=== PATIENT | female | born 1955 | race American Indian/Alaskan Native ===

== ENCOUNTER 2020-10-12 00:55 | Inpatient (IN) | payer MEDICARE ==
[2020-10-12] MEDS ORDERED: ASPIRIN 325 MG TAB PO ONE (01:11)
[2020-10-12 01:33] LABS: Basophils # (Auto) 0.1 K/mm3 (0.0-0.1); Eosinophils # (Auto) 0.2 K/mm3 (0.0-0.4); Hematocrit 34.4 % (30.3-42.9); Hemoglobin 11.9 gm/dl (10.1-14.3); Lymphocytes # (Auto) 1.3 K/mm3 (1.2-5.4); Lymphocytes % (Auto) 14.7 % (13.4-35.0); Mean Corpuscular HGB Conc 34 % (30-34); Mean Corpuscular Volume 95 fl (79-97); Monocytes # (Auto) 0.7 K/mm3 (0.0-0.8); Monocytes % (Auto) 8.3 % (0.0-7.3); Platelet Count 311 K/mm3 (140-440); Red Blood Count 3.62 M/mm3 (3.65-5.03); Red Cell Distribution Width 13.4 % (13.2-15.2)
--- NOTE | 2020-10-12 01:53 | XRay Report ---
XR chest routine 2V INDICATION / CLINICAL INFORMATION: CP. COMPARISON: None available. FINDINGS: SUPPORT DEVICES: None. HEART /PULMONARY VASCULATURE: No significant abnormality. LUNGS / PLEURA: No significant pulmonary or pleural abnormality. No pneumothorax. ADDITIONAL FINDINGS: No significant additional findings. IMPRESSION: 1. No acute findings. Signer Name: Corbin Paz MD Signed: 10/12/2020 1:48 AM Workstation Name: [id number]
[2020-10-12 02:06] LABS: Alanine Aminotransferase 15 units/L (7-56); Albumin 4.1 g/dL (3.9-5); BUN/Creatinine Ratio 15; Blood Urea Nitrogen 22 mg/dL (7-17); Calcium 9.1 mg/dL (8.4-10.2); Hemolysis Index 3
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
[2020-10-12] MEDS ORDERED: NITROGLYCERIN 0.4 MG TAB SUBL SL PRN (09:07)
[2020-10-12] MEDS ORDERED: ACETAMINOPHEN 325 MG TAB PO ONE (09:07)
[2020-10-12] MEDS ORDERED: INSULIN REGULAR, HUMAN 100 UNITS/1 ML IV ONE (09:07)
[2020-10-12] MEDS ORDERED: LACTATED RINGERS 500 ML IV ONE (09:07)
[2020-10-12] MEDS ORDERED: FAMOTIDINE 20 MG/2 ML INJ IV ONE (09:07)
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
--- NOTE | 2020-10-12 09:52 | Electrocardiograph Report ---
[facility] Test Date: 2020-10-12 Test Time: 01:08:58 Pat Name: ORA MCINTOSH Department: Room: [facility] Gender: F Wire Harness Assembler: NITHYA : 1955 Requested By: JANET LYONS Order Number: [id number] Reading MD: Israel Redmond Measurements Intervals [place] Rate: 103 P: 64 VT: 174 QRS: -10 QRSD: 157 T: 113 QT: 400 QTc: 523 Interpretive Statements Sinus tachycardia Left bundle branch block ST elevation secondary to IVCD No previous ECG available for comparison Electronically Signed On 10-12-2020 9:51:52 EDT by Israel Redmond
[2020-10-12] MEDS ORDERED: ENOXAPARIN 30 MG/0.3 ML INJ SUB-Q SCH (10:00)
[2020-10-12] MEDS ORDERED: NON-FORMULARY EACH (Losartan Potassium [Losartan Potassium] 100 MG Tablet) PO SCH (10:00)
[2020-10-12] MEDS ORDERED: INSULIN LISPRO 100 UNIT/ML SUB-Q ONE (10:00)
[2020-10-12 10:19] LABS: INR 0.95 (0.87-1.13)
[2020-10-12] MEDS: ENOXAPARIN 40 MG/0.4 ML INJ SUB-Q SCH (10:20)
--- NOTE | 2020-10-12 11:17 | Nuclear Medicine Report ---
NUCLEAR MEDICINE PERFUSION LUNG SCAN INDICATION / CLINICAL INFORMATION: cp dyspnea + d dimer. TECHNIQUE: 4.5 mCi of Tc-99m MAA were given by IV. COMPARISON: Chest radiograph dated 10/12/2020. FINDINGS: PERFUSION: No significant perfusion defects. ADDITIONAL FINDINGS: None. IMPRESSION: 1. Low probability for pulmonary embolism. Signer Name: Cristofer Acharya MD Signed: 10/12/2020 11:12 AM Workstation Name: [id number]
[2020-10-12] MEDS ORDERED: INSULIN GLARGINE 100 UNITS/ML SUB-Q ONE (11:50)
[2020-10-12] MEDS: LOSARTAN 50 MG TAB PO SCH (11:56)
[2020-10-12] MEDS: glipiZIDE 10 MG TAB PO SCH (11:56)
[2020-10-12] MEDS: NORTRIPTYLINE 25 MG CAP PO SCH ×3 (11:57→21:41)
[2020-10-12] MEDS: FUROSEMIDE 20 MG TAB PO SCH (11:57)
[2020-10-12] MEDS: GABAPENTIN 300 MG CAP PO SCH ×2 (14:43→21:40)
[2020-10-12] MEDS: INSULIN LISPRO 100 UNIT/ML SUB-Q SCH ×2 (16:52→21:42)
--- NOTE | 2020-10-12 19:30 | Progress Note ---
Assessment and Plan Assessment and plan: --Chest pain; Scheduled for stress test today however patient had VQ scan To rule out PE, and stress test is rescheduled for tomorrow 10/14/2020 Serial cardiac enzymes negative, EKG left bundle branch block/ST elevation secondary to IVCD No old EKG to compare Echocardiogram EF 15 to 20% Consult cardiology for further evaluation. --Cardiomyopathy EF 15 to 20% IV diuretics, beta-blockers, input output monitoring Low-sodium diet, fluid restriction Ischemia work-up, cardiology consultation --Hyperglycemia/hyperosmolar Closely monitor blood sugars Accu-Chek sliding scale coverage ADA diet Resume home long-acting insulin, Check A1c Diabetic education, diabetic diet education prior to discharge --Hyponatremia/probably pseudohyponatremia; Due to hyperglycemia, as the sugars improve Sodium levels will improve, normal saline --Type 2 diabetes mellitus; uncontrolled Accu-Chek sliding scale coverage ADA diet long-acting insulin Oral hypoglycemics, check A1c, diabetic education --Diabetic neuropathy; Resume gabapentin and supportive care --Acute kidney injury; Vasomotor nephropathy, gentle hydration Monitor renal function, avoid nephrotoxin --Obesity; BMI 30.8 Patient needs weight reduction when medically stable --DVT prophylaxis; Lovenox subcu --Full CODE STATUS Closely monitor the patient and adjust management as needed Follow cardiology evaluation recommendations Plan of care reviewed with the patient and her nurse History Interval history: I seen and examined the patient at bedside today Patient's chart and medications reviewed Admitted with chest pain with risk factors Initially scheduled for stress test, unable to do due to recent VQ scan Patient continues to have intermittent chest pain Vital signs Hospitalist Physical - Constitutional Vitals: Temp Pulse Resp BP Pulse Ox 98.3 F 95 H 16 148/73 99 10/12/20 16:00 10/12/20 16:00 10/12/20 16:31 10/12/20 16:00 10/12/20 16:31 General appearance: Present: no acute distress, well-nourished, obese - EENT Eyes: Present: PERRL, EOM intact - Neck Neck: Present: supple, normal ROM - Respiratory Respiratory effort: normal Respiratory: bilateral: diminished, rales, negative: rhonchi, wheezing - Cardiovascular Rhythm: regular Heart Sounds: Present: S1 & S2 - Extremities Extremities: no ischemia, No edema - Abdominal General gastrointestinal: soft, non-tender, non-distended, normal bowel sounds - Integumentary Integumentary: Present: clear, warm - Psychiatric Psychiatric: appropriate mood/affect, cooperative - Neurologic Neurologic: moves all extremities HEART Score - HEART Score EKG: Non-specific Age: > 65 Risk factors: > 3 risk factors or hx of atherosclerotic disease Troponin: Troponin T < 0.010 ng/mL (0.00-0.029) 10/12/20 07:25 Troponin: < normal limit - Critical Actions Critical Actions: 4-6 pts:12-16.6% risk of adverse cardiac event. Should be admitted Results - Labs CBC & Chem 7: 10/14/20 05:12 10/14/20 05:12 Labs: Laboratory Last Values WBC 8.7 K/mm3 (4.5-11.0) 10/12/20 01:18 RBC 3.62 M/mm3 (3.65-5.03) L 10/12/20 01:18 Hgb 11.9 gm/dl (10.1-14.3) 10/12/20 01:18 Hct 34.4 % (30.3-42.9) 10/12/20 01:18 MCV 95 fl (79-97) 10/12/20 01:18 MCH 33 pg (28-32) H 10/12/20 01:18 MCHC 34 % (30-34) 10/12/20 01:18 RDW 13.4 % (13.2-15.2) 10/12/20 01:18 Plt Count 311 K/mm3 (140-440) 10/12/20 01:18 Lymph % (Auto) 14.7 % (13.4-35.0) 10/12/20 01:18 [place] % (Auto) 8.3 % (0.0-7.3) H 10/12/20 01:18 Eos % (Auto) 2.0 % (0.0-4.3) 10/12/20 01:18 Baso % (Auto) 1.0 % (0.0-1.8) 10/12/20 01:18 Lymph # (Auto) 1.3 K/mm3 (1.2-5.4) 10/12/20 01:18 [place] # (Auto) 0.7 K/mm3 (0.0-0.8) 10/12/20 01:18 Eos # (Auto) 0.2 K/mm3 (0.0-0.4) 10/12/20 01:18 Baso # (Auto) 0.1 K/mm3 (0.0-0.1) 10/12/20 01:18 Seg Neutrophils % 74.0 % (40.0-70.0) H 10/12/20 01:18 Seg Neutrophils # 6.4 K/mm3 (1.8-7.7) 10/12/20 01:18 PT 13.2 Sec. (12.2-14.9) 10/12/20 09:07 INR 0.95 (0.87-1.13) 10/12/20 09:07 D-Dimer 253.29 ng/mlDDU (0-234) H 10/12/20 09:07 Sodium 129 mmol/L (137-145) L 10/12/20 01:18 Potassium 4.9 mmol/L (3.6-5.0) 10/12/20 01:18 Chloride 90.7 mmol/L (98-107) L 10/12/20 01:18 Carbon Dioxide 26 mmol/L (22-30) 10/12/20 01:18 Anion Gap 17 mmol/L 10/12/20 01:18 BUN 22 mg/dL (7-17) H 10/12/20 01:18 Creatinine 1.5 mg/dL (0.6-1.2) H 10/12/20 01:18 Estimated GFR 35 ml/min 10/12/20 01:18 BUN/Creatinine Ratio 15 % 10/12/20 01:18 Glucose 592 mg/dL (65-100) H* 10/12/20 01:18 POC Glucose 169 mg/dL (70-105) H 10/12/20 16:03 Calcium 9.1 mg/dL (8.4-10.2) 10/12/20 01:18 Magnesium 2.20 mg/dL (1.7-2.3) 10/12/20 09:07 Total Bilirubin 0.40 mg/dL (0.1-1.2) 10/12/20 01:18 AST 19 units/L (5-40) 10/12/20 01:18 ALT 15 units/L (7-56) 10/12/20 01:18 Alkaline Phosphatase 158 units/L (35-129) H 10/12/20 01:18 Total Creatine Kinase 58 units/L (30-135) 10/12/20 09:07 Troponin T < 0.010 ng/mL (0.00-0.029) 10/12/20 07:25 Total Protein 7.1 g/dL (6.3-8.2) 10/12/20 01:18 Albumin 4.1 g/dL (3.9-5) 10/12/20 01:18 Albumin/Globulin Ratio 1.4 % 10/12/20 01:18 Teran/IV: Voiding Method Toilet Active Medications - Current Medications Current Medications: Generic Name Dose Route Start Last Admin Trade Name Freq PRN Reason Stop Dose Admin Enoxaparin Sodium 40 mg 10/12/20 10:00 10/12/20 10:20 Enoxaparin 40 Mg/0.4 Ml Inj SUB-Q 40 mg QDAY@1000 JOSE ANGEL Administration Furosemide 20 mg 10/12/20 10:00 10/12/20 11:57 Furosemide 20 Mg Tab PO 20 mg QDAY JOSE ANGEL Administration Gabapentin 300 mg 10/12/20 14:00 10/12/20 14:43 Gabapentin 300 Mg Cap PO 300 mg Q8HR JOSE ANGEL Administration Glipizide 10 mg 10/12/20 10:00 10/12/20 11:56 Glipizide 10 Mg Tab PO 10 mg QDDIAB JOSE ANGEL Administration Insulin Glargine 10 units 10/12/20 22:00 Insulin Glargine 100 Units/Ml SUB-Q QHS JOSE ANGEL Insulin Human Lispro 0 unit 10/12/20 16:30 10/12/20 16:52 Insulin Lispro 100 Unit/Ml SUB-Q 2 unit ACHS JOSE ANGEL Administration Protocol Losartan Potassium 100 mg 10/12/20 10:00 10/12/20 11:56 Losartan 50 Mg Tab PO 100 mg QDAY JOSE ANGEL Administration Nitroglycerin 0.4 mg 10/12/20 09:07 Nitroglycerin 0.4 Mg Tab Subl SL .Q5MIN PRN Chest Pain Nortriptyline HCl 25 mg 10/12/20 14:00 10/12/20 14:38 Nortriptyline 25 Mg Cap PO Not Given TID JOSE ANGEL
[2020-10-12] MEDS: INSULIN GLARGINE 100 UNITS/ML SUB-Q SCH (21:48)
[2020-10-12] MEDS: PANTOPRAZOLE 40 MG INJ IV SCH (22:17)
[2020-10-13 05:14] LABS: Calcium 9.5 mg/dL (8.4-10.2)
[2020-10-13] MEDS: GABAPENTIN 300 MG CAP PO SCH ×3 (06:02→23:03)
[2020-10-13] MEDS: NORTRIPTYLINE 25 MG CAP PO SCH ×3 (09:10→23:03)
[2020-10-13] MEDS: INSULIN LISPRO 100 UNIT/ML SUB-Q SCH ×4 (09:10→23:01)
[2020-10-13] MEDS: LOSARTAN 50 MG TAB PO SCH (09:11)
[2020-10-13] MEDS: glipiZIDE 10 MG TAB PO SCH (09:11)
[2020-10-13] MEDS: ENOXAPARIN 40 MG/0.4 ML INJ SUB-Q SCH (09:12)
[2020-10-13] MEDS: PANTOPRAZOLE 40 MG INJ IV SCH (09:12)
[2020-10-13] MEDS: FUROSEMIDE 20 MG TAB PO SCH (09:12)
[2020-10-13] MEDS: carvediloL 6.25 MG TAB PO SCH ×2 (10:07→23:03)
--- NOTE | 2020-10-13 10:54 | Electrocardiograph Report ---
[facility] Test Date: 2020-10-13 Test Time: 07:15:44 Pat Name: ORA MCINTOSH Department: Room: A457 1 Gender: F Sustainability Project Manager: CATIE : 1955 Requested By: JANET LYONS Order Number: [id number] Reading MD: Israel Redmond Measurements Intervals [place] Rate: 91 P: 80 [place]: 166 QRS: -21 QRSD: 162 T: 109 QT: 430 QTc: 528 Interpretive Statements Sinus rhythm Left bundle branch block ST elevation secondary to IVCD Compared to ECG 10/12/2020 01:08:58 Sinus tachycardia no longer present Electronically Signed On 10-13-2020 10:54:05 EDT by Israel Redmond
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
[2020-10-13] MEDS ORDERED: ASPIRIN EC 325 MG TAB PO SCH (14:00)
[2020-10-13] MEDS ORDERED: SODIUM CHLORIDE 0.9% 500 ML 500 ML IV SCH (14:00)
[2020-10-13] MEDS: SPIRONOLACTONE 25 MG TAB PO SCH (15:07)
[2020-10-13] MEDS: ASPIRIN EC 81 MG TAB PO SCH (15:08)
[2020-10-13] MEDS: INSULIN GLARGINE 100 UNITS/ML SUB-Q SCH (23:02)
[2020-10-14] MEDS: GABAPENTIN 300 MG CAP PO SCH ×3 (05:25→21:54)
[2020-10-14 05:48] LABS: Hematocrit 35.1 % (30.3-42.9); Hemoglobin 11.6 gm/dl (10.1-14.3); Mean Corpuscular HGB Conc 33 % (30-34); Mean Corpuscular Volume 96 fl (79-97); Platelet Count 298 K/mm3 (140-440); Red Blood Count 3.66 M/mm3 (3.65-5.03); Red Cell Distribution Width 13.9 % (13.2-15.2)
[2020-10-14 05:58] LABS: INR 0.85 (0.87-1.13)
[2020-10-14 06:07] LABS: Calcium 9.1 mg/dL (8.4-10.2)
[2020-10-14] MEDS: INSULIN LISPRO 100 UNIT/ML SUB-Q SCH ×4 (08:53→21:53)
[2020-10-14] MEDS: glipiZIDE 10 MG TAB PO SCH (09:06)
[2020-10-14] MEDS: NORTRIPTYLINE 25 MG CAP PO SCH ×3 (09:07→21:54)
--- NOTE | 2020-10-14 10:24 | Electrocardiograph Report ---
[facility] Test Date: 2020-10-14 Test Time: 07:22:01 Pat Name: ORA MCINTOSH Department: Room: A457 1 Gender: F Sales Rep: CATIE : 1955 Requested By: LEON DOWNS Order Number: [id number] Reading MD: Israel Redmond Measurements Intervals [place] Rate: 87 P: 68 [place]: 185 QRS: -14 QRSD: 160 T: 91 QT: 427 QTc: 515 Interpretive Statements Sinus rhythm Left bundle branch block ST elevation secondary to IVCD Compared to ECG 10/13/2020 07:15:44 No significant changes Electronically Signed On 10-14-2020 10:24:23 EDT by Israel Redmond
[2020-10-14] MEDS: ASPIRIN EC 81 MG TAB PO SCH (12:13)
--- NOTE | 2020-10-14 12:15 | Progress Note ---
Assessment and Plan Assessment and plan: Cardiac catheterization: as done via the right radial approach, no complications. We found a predominant ly nonischemic cardiomyopathy with ejection fraction 25 to 30%. There was single-vessel disease consisting of a long, 80% stenosis of the proximal LAD, which we treated with angioplasty and stenting, successful implantation of a 3.0 mm drug-eluting stent with excellent angiographic result. Patient will be placed on dual oral antiplatelet therapy with aspirin and Plavix, in addition to optimal, guideline directed therapy for the underlying nonischemic cardiomyopathy. --Chest pain/new onset cardiomyopathy/EF 15 to 20% Cardiology evaluated the patient, underwent left heart catheterization via right radial approach Single-vessel disease with 80% stenosis of proximal LAD status post angioplasty and BOBBI placement Patient is started on dual antiplatelet therapy with aspirin and Plavix Cardiology recommend guideline directed therapy for underlying nonischemic cardiomyopathy, --Coronary artery disease; 80% stenosis proximal LAD s/p BOBBI placement, started on dual antiplatelet therapy --Severe cardiomyopathy; EF 15 to 20% Continue IV diuretics beta-blockers, input output monitoring JIM inhibitor's, fluid restriction, low-sodium diet --Hyperglycemia/hyperosmolar; and on admission Significantly improved --Type 2 diabetes mellitus; blood sugars uncontrolled patient did not receive insulin last night due to n.p.o. status Accu-Chek sliding scale coverage ADA diet long-acting insulin Oral hypoglycemics, check A1c, diabetic education --Hyponatremia/probably pseudohyponatremia; Resolved, closely monitor electrolytes --Diabetic neuropathy; Resume gabapentin and supportive care --Acute kidney injury; Vasomotor nephropathy, gentle hydration Monitor renal function, avoid nephrotoxin --Obesity; BMI 30.8 Patient needs weight reduction when medically stable --DVT prophylaxis; Lovenox subcu --Full CODE STATUS Closely monitor the patient and adjust management as needed Follow cardiology evaluation recommendations Plan of care reviewed with the patient and her nurse Possible discharge in 1 to 2 days if stable and cleared by cardiology History Interval history: Patient was evaluated by cardiology and was scheduled for left heart cathet erization this morning. Patient underwent LHC, status post stent placement I seen and examined the patient at the bedside Patient's chart and medications reviewed No new complaints vital signs noted Hospitalist Physical - Constitutional Vitals: Temp Pulse Resp BP Pulse Ox 97.9 F 88 19 106/63 100 10/14/20 08:07 10/14/20 08:07 10/14/20 08:07 10/14/20 08:07 10/14/20 08:07 General appearance: Present: no acute distress, well-nourished - EENT Eyes: Present: PERRL, EOM intact - Neck Neck: Present: supple, normal ROM - Respiratory Respiratory effort: normal Respiratory: bilateral: diminished, negative: rales, rhonchi, wheezing - Cardiovascular Rhythm: regular Heart Sounds: Present: S1 & S2 - Extremities Extremities: no ischemia, No edema - Abdominal General gastrointestinal: soft, non-tender, non-distended, normal bowel sounds - Integumentary Integumentary: Present: clear, warm - Psychiatric Psychiatric: appropriate mood/affect, cooperative - Neurologic Neurologic: moves all extremities HEART Score - HEART Score EKG: Non-specific Age: > 65 Risk factors: > 3 risk factors or hx of atherosclerotic disease Troponin: Troponin T < 0.010 ng/mL (0.00-0.029) 10/12/20 07:25 Troponin: < normal limit - Critical Actions Critical Actions: 4-6 pts:12-16.6% risk of adverse cardiac event. Should be admitted Results - Labs CBC & Chem 7: 10/14/20 05:12 10/14/20 05:12 Labs: Laboratory Last Values WBC 7.0 K/mm3 (4.5-11.0) 10/14/20 05:12 RBC 3.66 M/mm3 (3.65-5.03) 10/14/20 05:12 Hgb 11.6 gm/dl (10.1-14.3) 10/14/20 05:12 Hct 35.1 % (30.3-42.9) 10/14/20 05:12 MCV 96 fl (79-97) 10/14/20 05:12 MCH 32 pg (28-32) 10/14/20 05:12 MCHC 33 % (30-34) 10/14/20 05:12 RDW 13.9 % (13.2-15.2) 10/14/20 05:12 Plt Count 298 K/mm3 (140-440) 10/14/20 05:12 Lymph % (Auto) 14.7 % (13.4-35.0) 10/12/20 01:18 [place] % (Auto) 8.3 % (0.0-7.3) H 10/12/20 01:18 Eos % (Auto) 2.0 % (0.0-4.3) 10/12/20 01:18 Baso % (Auto) 1.0 % (0.0-1.8) 10/12/20 01:18 Lymph # (Auto) 1.3 K/mm3 (1.2-5.4) 10/12/20 01:18 [place] # (Auto) 0.7 K/mm3 (0.0-0.8) 10/12/20 01:18 Eos # (Auto) 0.2 K/mm3 (0.0-0.4) 10/12/20 01:18 Baso # (Auto) 0.1 K/mm3 (0.0-0.1) 10/12/20 01:18 Seg Neutrophils % 74.0 % (40.0-70.0) H 10/12/20 01:18 Seg Neutrophils # 6.4 K/mm3 (1.8-7.7) 10/12/20 01:18 PT 12.1 Sec. (12.2-14.9) L 10/14/20 05:12 INR 0.85 (0.87-1.13) L 10/14/20 05:12 D-Dimer 253.29 ng/mlDDU (0-234) H 10/12/20 09:07 Sodium 135 mmol/L (137-145) L 10/14/20 05:12 Potassium 5.1 mmol/L (3.6-5.0) H 10/14/20 05:12 Chloride 97.4 mmol/L (98-107) L 10/14/20 05:12 Carbon Dioxide 29 mmol/L (22-30) 10/14/20 05:12 Anion Gap 14 mmol/L 10/14/20 05:12 BUN 24 mg/dL (7-17) H 10/14/20 05:12 Creatinine 1.3 mg/dL (0.6-1.2) H 10/14/20 05:12 Estimated GFR 49 ml/min 10/14/20 05:12 BUN/Creatinine Ratio 18 % 10/14/20 05:12 Glucose 354 mg/dL (65-100) H 10/14/20 05:12 POC Glucose 289 mg/dL (70-105) H 10/14/20 11:53 Calcium 9.1 mg/dL (8.4-10.2) 10/14/20 05:12 Phosphorus 3.00 mg/dL (2.5-4.5) 10/13/20 04:06 Magnesium 2.10 mg/dL (1.7-2.3) 10/13/20 04:06 Total Bilirubin 0.40 mg/dL (0.1-1.2) 10/12/20 01:18 AST 19 units/L (5-40) 10/12/20 01:18 ALT 15 units/L (7-56) 10/12/20 01:18 Alkaline Phosphatase 158 units/L (35-129) H 10/12/20 01:18 Total Creatine Kinase 58 units/L (30-135) 10/12/20 09:07 Troponin T < 0.010 ng/mL (0.00-0.029) 10/12/20 07:25 Total Protein 7.1 g/dL (6.3-8.2) 10/12/20 01:18 Albumin 4.1 g/dL (3.9-5) 10/12/20 01:18 Albumin/Globulin Ratio 1.4 % 10/12/20 01:18 Teran/IV: Voiding Method Toilet Active Medications - Current Medications Current Medications: Generic Name Dose Route Start Last Admin Trade Name Freq PRN Reason Stop Dose Admin Aspirin 81 mg 10/13/20 14:00 10/13/20 15:08 Aspirin Ec 81 Mg Tab PO 81 mg QDAY JOSE ANGEL Administration Carvedilol 6.25 mg 10/13/20 10:00 10/13/20 23:03 Carvedilol 6.25 Mg Tab PO 6.25 mg BID JOSE ANGEL Administration Enoxaparin Sodium 40 mg 10/12/20 10:00 10/13/20 09:12 Enoxaparin 40 Mg/0.4 Ml Inj SUB-Q 40 mg QDAY@1000 JOSE ANGEL Administration Furosemide 40 mg 10/14/20 10:00 Furosemide 40 Mg/4 Ml Inj IV QDAY JOSE ANGEL Gabapentin 300 mg 10/12/20 14:00 10/14/20 05:25 Gabapentin 300 Mg Cap PO 300 mg Q8HR JOSE ANGEL Administration Glipizide 10 mg 10/12/20 10:00 10/14/20 09:06 Glipizide 10 Mg Tab PO Not Given QDDIAB JOSE ANGEL Sodium Chloride 500 mls @ 50 mls/hr 10/13/20 14:00 10/14/20 05:25 Nacl 0.9% 500 Ml IV 10/14/20 13:59 50 mls/hr DIRECT JOSE ANGEL Administration Insulin Glargine 10 units 10/12/20 22:00 10/13/20 23:02 Insulin Glargine 100 Units/Ml SUB-Q Not Given QHS JOSE ANGEL Insulin Human Lispro 0 unit 10/12/20 16:30 10/14/20 12:01 Insulin Lispro 100 Unit/Ml SUB-Q 4 unit ACHS JOSE ANGEL Administration Protocol Losartan Potassium 100 mg 10/12/20 10:00 10/13/20 09:11 Losartan 50 Mg Tab PO 100 mg QDAY JOSE ANGEL Administration Nitroglycerin 0.4 mg 10/12/20 09:07 Nitroglycerin 0.4 Mg Tab Subl SL .Q5MIN PRN Chest Pain Nortriptyline HCl 25 mg 10/12/20 14:00 10/14/20 09:07 Nortriptyline 25 Mg Cap PO Not Given TID JOSE ANGEL Pantoprazole Sodium 40 mg 10/12/20 22:00 10/13/20 09:12 Pantoprazole 40 Mg Inj IV 40 mg QDAY JOSE ANGEL Administration Spironolactone 25 mg 10/13/20 14:00 10/13/20 15:07 Spironolactone 25 Mg Tab PO Not Given QDAY JOSE ANGEL
[2020-10-14] MEDS ORDERED: HEPARIN/NS 5000 UNIT/500ML 1,000 ML IR ONE (12:22)
[2020-10-14] MEDS: MIDAZOLAM 2 MG/2 ML INJ ONE ×2 (13:24→13:44)
[2020-10-14] MEDS: fentaNYL 100 MCG/2 ML INJ ONE ×2 (13:24→13:44)
[2020-10-14] MEDS: LIDOCAINE (2%) 20 MG/1 ML VIAL 20 ML MDV INFILTRATI ONE ×2 (13:25→13:46)
[2020-10-14] MEDS: VERAPAMIL 5 MG/2 ML INJ ONE ×2 (13:25→13:47)
[2020-10-14] MEDS: HEPARIN 10,000 UNITS/10 ML VIAL ONE ×3 (13:25→13:57)
[2020-10-14] MEDS: NITROGLYCERIN SYRINGE 3 ML ONE ×2 (13:26→13:47)
[2020-10-14] MEDS ORDERED: CLOPIDOGREL 300 MG TAB ONE (14:20)
[2020-10-14] MEDS ORDERED: ALUM-MAG HYDROXIDE-SIMETHICONE 200-200-20MG/5ML ORAL LIQD 30 ML ONE (14:20)
--- NOTE | 2020-10-14 14:32 | Event Note ---
Date: 10/14/20 Cardiac catheterization was done via the right radial approach, no complications. We found a predominantly nonischemic cardiomyopathy with ejection fraction 25 to 30%. There was single-vessel disease consisting of a long, 80% stenosis of the proximal LAD, which we treated with angioplasty and stenting, successful implantation of a 3.0 mm drug-eluting stent with excellent angiographic result. Patient will be placed on dual oral antiplatelet therapy with aspirin and Plavix, in addition to optimal, guideline directed therapy for the underlying nonischemic cardiomyopathy.
[2020-10-14] MEDS ORDERED: SODIUM CHLORIDE 0.9% 1000 ML 1,000 ML IV SCH (15:45)
[2020-10-14] MEDS: ENOXAPARIN 40 MG/0.4 ML INJ SUB-Q SCH (15:52)
[2020-10-14] MEDS: PANTOPRAZOLE 40 MG INJ IV SCH (18:32)
[2020-10-14] MEDS: FUROSEMIDE 40 MG/4 ML INJ IV SCH (18:33)
[2020-10-14] MEDS: LOSARTAN 50 MG TAB PO SCH (18:33)
[2020-10-14] MEDS: carvediloL 6.25 MG TAB PO SCH ×2 (18:33→21:54)
[2020-10-14] MEDS: SPIRONOLACTONE 25 MG TAB PO SCH (18:34)
--- NOTE | 2020-10-14 19:57 | Cardiac Catherization Report ---
DATE OF SERVICE: 10/14/2020 REASON FOR PROCEDURE: The patient is a 65-year-old woman who presented with chest pain and severe dilated cardiomyopathy with systolic left ventricular failure. After treatment of heart failure, she was recommended for cardiac catheterization. Risks and benefits of the procedure were discussed with the patient. On her presentation, there was mild prerenal azotemia, the patient was placed on intravenous hydration at 50-75 mL an hour of normal saline prior to the procedure. She was made aware of the increased risk of contrast nephropathy and consented to contrast angiography. PROCEDURES PERFORMED: 1. Left heart catheterization. 2. Selective left and right coronary angiography. 3. Left ventricular angiography. 4. Coronary angioplasty and stenting of the proximal LAD. 5. Sedation time start 1344, end 1413. The patient was prepped and draped in a sterile fashion after informed consent. The right radial cath site was prepped and draped after negative Randell's test. Right radial artery was entered using Seldinger technique followed by placement of a 6-[place] hydrophilic sheath. Routine radial cocktail was administered via the sheath. Selective left and right coronary angiography was then performed using a 3.5 left Debby and 4 right Debby. The right Debby was used for left ventricular angiography. The angiograms were reviewed. Left ventricular end diastolic pressure was 20, following coronary angiography. Ascending aortic pressure was 110/58. There was no significant pressure gradient on pullback across the aortic valve. Coronary angiography: The left main coronary artery was free of significant disease. The left anterior descending artery contained a long, up to 80% stenosis of its entire proximal segment. A large ramus intermedius artery contained mild luminal irregularities. The circumflex artery and its obtuse marginal branches contained mild irregularities. The right coronary artery was dominant and similarly contained diffuse mild irregularities. The left ventricle was moderately to severely dilated, there was severe left ventricular systolic dysfunction, ejection fraction 25%-30%. Coronary angioplasty: After review of the angiograms, coronary intervention to the proximal LAD stenosis was recommended. We selected a 3.0 XB guiding catheter and advanced to the left coronary ostium. A 0.014 inch Parking Enforcement Manager 50 guidewire was then introduced across the lesional segment. In the primary stenting maneuver, we deployed a 3.0 x 26 mm drug-eluting stent covering the entire long lesional segment of the proximal to mid LAD. Following stenting, we postdilated using a 3.0 mm NC balloon catheter. Following angioplasty, stenting and post-dilatation as described, there was an excellent angiographic result, zero residual stenosis and DAVE 3 flow maintained down the vessel. The procedure was well tolerated by the patient and there were no complications. The catheters and wires were removed, sheath removed and hemostasis achieved using TR Band. She was returned to the postprocedure unit in stable condition. There were no complications. CONCLUSION: 1. Coronary artery disease with a severe stenosis of the proximal to mid LAD. 2. Severe ischemic cardiomyopathy with ejection fraction 25%-35%. The severity of the cardiomyopathy is disproportionate to the degree of coronary artery disease present. 3. Successful ad-hoc angioplasty and stenting of the LAD, with an excellent angiographic result following deployment of a 3.0 mm drug-eluting stent. RECOMMENDATIONS: The patient will be placed on guideline directed medical therapy for coronary artery disease including dual oral antiplatelet therapy. Additional guideline directed medical therapy as indicated for underlying, predominantly nonischemic cardiomyopathy. TID: [id number] RECEIPT: [id number] BULMARO/ASA
[2020-10-14] MEDS: INSULIN GLARGINE 100 UNITS/ML SUB-Q SCH (21:54)
[2020-10-15] MEDS: GABAPENTIN 300 MG CAP PO SCH ×2 (06:00→13:02)
[2020-10-15 06:19] LABS: Basophils # (Auto) 0.1 K/mm3 (0.0-0.1); Basophils % (Auto) 1.1 % (0.0-1.8); Eosinophils # (Auto) 0.3 K/mm3 (0.0-0.4); Eosinophils % (Auto) 4.3 % (0.0-4.3); Hematocrit 30.2 % (30.3-42.9); Hemoglobin 10.3 gm/dl (10.1-14.3); Lymphocytes # (Auto) 1.3 K/mm3 (1.2-5.4); Lymphocytes % (Auto) 19.3 % (13.4-35.0); Mean Corpuscular HGB Conc 34 % (30-34); Mean Corpuscular Volume 96 fl (79-97); Monocytes # (Auto) 0.6 K/mm3 (0.0-0.8); Platelet Count 256 K/mm3 (140-440); Red Blood Count 3.15 M/mm3 (3.65-5.03); Red Cell Distribution Width 13.4 % (13.2-15.2)
[2020-10-15 06:57] LABS: Calcium 8.8 mg/dL (8.4-10.2)
[2020-10-15] MEDS ORDERED: PANTOPRAZOLE 40 MG TAB PO SCH (07:30)
[2020-10-15 08:04] LABS: Chol/HDL Ratio 2.12 %
--- NOTE | 2020-10-15 08:38 | XRay Report ---
CHEST 1 VIEW INDICATION / CLINICAL INFORMATION: post pci. Chest pain FINDINGS: SUPPORT DEVICES: None. HEART / MEDIASTINUM: No significant abnormality. LUNGS / PLEURA: No significant pulmonary or pleural abnormality. No pneumothorax. ADDITIONAL FINDINGS: No significant additional findings. IMPRESSION: 1. No acute findings. Signer Name: Jasper Ortiz MD Signed: 10/15/2020 8:34 AM Workstation Name: [id number]
[2020-10-15] MEDS ORDERED: INSULIN GLARGINE 100 UNITS/ML SUB-Q ONE (09:00)
[2020-10-15] MEDS: INSULIN LISPRO 100 UNIT/ML SUB-Q SCH ×3 (09:34→17:00)
[2020-10-15] MEDS: ENOXAPARIN 40 MG/0.4 ML INJ SUB-Q SCH (09:35)
[2020-10-15] MEDS: glipiZIDE 10 MG TAB PO SCH (09:35)
[2020-10-15] MEDS: SPIRONOLACTONE 25 MG TAB PO SCH ×2 (09:36→13:00)
[2020-10-15] MEDS: carvediloL 6.25 MG TAB PO SCH (09:36)
[2020-10-15] MEDS: ASPIRIN EC 81 MG TAB PO SCH (09:37)
[2020-10-15] MEDS: NORTRIPTYLINE 25 MG CAP PO SCH ×2 (09:37→13:02)
[2020-10-15] MEDS: FUROSEMIDE 40 MG/4 ML INJ IV SCH (09:38)
[2020-10-15] MEDS: LOSARTAN 50 MG TAB PO SCH ×3 (12:47→13:08)
[2020-10-15 13:02] VITALS: BP 120/68
--- NOTE | 2020-10-15 13:05 | Progress Note ---
Assessment and Plan - Patient Problems (1) Systolic CHF with reduced left ventricular function, NYHA class 2 Current Visit: Yes Status: Acute Plan to address problem: Patient underwent a cardiac catheterization that showed an 80% stenosis of the proximal LAD, treated with a single 3.0 mm drug-eluting stent, excellent angiographic result. She has an underlying, severe nonischemic cardiomyopathy which is recommended for medical management and close outpatient follow-up by her primary dry cure worker. She plans to return to her home in [place] in the next few days. Stable for cardiac discharge on optimal medical therapy on current MAY. Aspirin and Plavix should be uninterrupted for at least 12 to 18 months. Continue other guideline directed medical therapy for chronic left ventricular systolic failure. Follow-up is recommended with her dry cure worker within 1 to 2 weeks of discharge. Subjective Date of service: 10/15/20 Interval history: Patient is comfortable, looks and feels better, no chest pain and no shortness of breath. Her right wrist cath site is well-healed, no ecchymosis or hematoma, normal radial pulses. Objective Vital Signs Temp Pulse Resp BP BP Pulse Ox 10/15/20 13:00 89 120/68 10/15/20 10:00 97 10/15/20 09:36 108/57 10/15/20 08:06 98.2 F 94 H 18 108/57 98 10/15/20 06:35 97.2 F L 94 H 18 105/57 98 10/15/20 04:00 94 H 10/15/20 01:19 97.5 F L 93 H 18 92/51 96 10/15/20 00:00 18 100 10/14/20 22:05 100 10/14/20 21:54 95 H 122/73 10/14/20 20:00 98 H 10/14/20 19:43 97.9 F 95 H 18 122/73 100 10/14/20 16:38 98.5 F 19 115/67 - Physical Examination General: Appears Well, No Apparent Distress HEENT: Positive: PERRL Neck: Positive: neck supple Cardiac: Positive: Reg Rate and Rhythm Lungs: Positive: Decreased Breath Sounds Neuro: Positive: Grossly Intact Abdomen: Positive: Soft Skin: Positive: Clear Extremities: Absent: edema - Labs and Meds Lipids 10/15/20 Range/Units 05:52 Triglycerides 125 (2-149) mg/dL Cholesterol 117 (50-199) mg/dL HDL Cholesterol 55 (40-59) mg/dL Cholesterol/HDL Ratio 2.12 % CBC 10/15/20 Range/Units 05:52 WBC 6.9 (4.5-11.0) K/mm3 RBC 3.15 L (3.65-5.03) M/mm3 Hgb 10.3 (10.1-14.3) gm/dl Hct 30.2 L (30.3-42.9) % Plt Count 256 (140-440) K/mm3 Lymph # (Auto) 1.3 (1.2-5.4) K/mm3 [place] # (Auto) 0.6 (0.0-0.8) K/mm3 Eos # (Auto) 0.3 (0.0-0.4) K/mm3 Baso # (Auto) 0.1 (0.0-0.1) K/mm3 Comprehensive Metabolic Panel 10/15/20 Range/Units 05:52 Sodium 136 L (137-145) mmol/L Potassium 4.9 (3.6-5.0) mmol/L Chloride 99.3 (98-107) mmol/L Carbon Dioxide 28 (22-30) mmol/L BUN 19 H (7-17) mg/dL Creatinine 1.2 (0.6-1.2) mg/dL Glucose 384 H (65-100) mg/dL Calcium 8.8 (8.4-10.2) mg/dL
--- NOTE | 2020-10-15 14:39 | Discharge Summary ---
Providers - Providers Date of Admission: 10/13/20 11:50 Date of discharge: 10/15/20 Attending physician: SAMANTA GUERRA 10/13/20 09:16 Consult to Physician [CONS] Routine Comment: Consulting Provider: LEON DOWNS Physician Instructions: Reason For Exam: Chest pain/cardiomyopathy EF 15- 20%/abnormal EKG 10/14/20 Consult to Cardiac Rehabilitation [CONS] Routine Reason For Exam: post pci Hospitalization Reason for admission: Chest pain /uncontrolled blood sugars Condition: Good Pertinent studies: VQ scan Chest x-ray Echo cardiac cath Procedures: Cardiac catheterization: as done via the right radial approach, no complications. We found a predominantly nonischemic cardiomyopathy with ejection fraction 25 to 30%. There was single-vessel disease consisting of a long, 80% stenosis of the proximal LAD, which we treated with angioplasty and stenting, successful implantation of a 3.0 mm drug-eluting stent with excellent angiographic result. Patient will be placed on dual oral antiplatelet therapy with aspirin and Plavix, in addition to optimal, guideline directed therapy for the underlying nonischemic cardiomyopathy. Hospital course: 65-year-old obese -[place] female patient with significant past medical history of type 2 diabetes mellitus, hypertension, diabetic neuropathy was admitted through emergency room with intermittent chest pain and uncontrolled blood sugars. Patient was admitted appropriately managed, underwent echocardiogram which showed new onset severe cardiomyopathy with ejection fraction of 15 to 20% Patient the patient on antifailure medications, consulted cardiology and subsequently underwent coronary artery angiogram which revealed 80 to 80% blockage of proximal LAD.subsequently received drug-eluting stent placement, managed on dual antiplatelet therapy, beta-blockers, ARB's, statin, nitroglycerin and supportive care Today patient is comfortable no new complaints vital signs stable physical examination unremarkable patient's blood sugars are uncontrolled due to noncompliance, strongly advised the patient to receive diabetic and medication and nutrition education prior to discharge And closely monitor blood sugar seen consultation with primary care physician adjust the dosages for better control They verbalized understanding patient is hemodynamically and clinically stable at discharge Cardiac catheterization: as done via the right radial approach, no complications. We found a predominantly nonischemic cardiomyopathy with ejection fraction 25 to 30%. There was single-vessel disease consisting of a long, 80% stenosis of the proximal LAD, which we treated with angioplasty and stenting, successful implantation of a 3.0 mm drug-eluting stent with excellent angiographic result. Patient will be placed on dual oral antiplatelet therapy with aspirin and Plavix, in addition to optimal, guideline directed therapy for the underlying nonischemic cardiomyopathy. Discharge diagnosis: --Chest pain/new onset cardiomyopathy/EF 15 to 20% Cardiology evaluated the patient, underwent left heart catheterization via right radial approach Single-vessel disease with 80% stenosis of proximal LAD status post angioplasty and BOBBI placement Patient is started on dual antiplatelet therapy with aspirin and Plavix Cardiology recommend guideline directed therapy for underlying nonischemic cardiomyopathy, --Coronary artery disease; 80% stenosis proximal LAD s/p BOBBI placement, started on dual antiplatelet therapy --Severe cardiomyopathy; EF 15 to 20% Continue IV diuretics beta-blockers, input output monitoring JIM inhibitor's, fluid restriction, low-sodium diet --Hyperglycemia/hyperosmolar; and on admission Significantly improved --Type 2 diabetes mellitus; blood sugars uncontrolled patient did not receive insulin last night due to n.p.o. status Accu-Chek sliding scale coverage ADA diet long-acting insulin Oral hypoglycemics, check A1c, diabetic education --Hyponatremia/probably pseudohyponatremia; Resolved, closely monitor electrolytes --Diabetic neuropathy; Resume gabapentin and supportive care --Acute kidney injury; Vasomotor nephropathy, gentle hydration Monitor renal function, avoid nephrotoxin --Obesity; BMI 30.8 Patient needs weight reduction when medically stable --Medical noncompliance --DVT prophylaxis; Lovenox subcu --Full CODE STATUS Today patient is comfortable no new complaints Cleared by cardiology for discharge Follow-up with PMD and private cardiology per schedule Disposition: DC- TO HOME OR SELFCARE Final Discharge Diagnosis (Prints w/discharge instructions): Acute coronary artery disease;. Proximal LAD stenosis 80%. Status post drug-eluting stent. New onset severe cardiomyopathy. Obesity BMI 31.4. Medical noncompliance. Acute kidney injury. Diabetic neuropathy. Hyponatremia Time spent for discharge: 35 min Core Measure Documentation - Palliative Care Palliative Care/ Comfort Measures: Not Applicable - Core Measures Any of the following diagnoses?: none Exam - Constitutional Vitals: Temp Pulse Resp BP Pulse Ox 98.2 F 89 18 120/68 100 10/15/20 08:06 10/15/20 13:00 10/15/20 12:00 10/15/20 13:08 10/15/20 12:00 General appearance: Present: no acute distress, well-nourished - EENT Eyes: Present: PERRL, EOM intact - Neck Neck: Present: supple, normal ROM - Respiratory Respiratory effort: normal Respiratory: bilateral: diminished, negative: rales, rhonchi, wheezing - Cardiovascular Rhythm: regular Heart Sounds: Present: S1 & S2 - Extremities Extremities: no ischemia, No edema - Abdominal General gastrointestinal: Present: soft, non-tender, non-distended, normal bowel sounds - Integumentary Integumentary: Present: clear, warm - Musculoskeletal Musculoskeletal: strength equal bilaterally, generalized weakness - Psychiatric Psychiatric: appropriate mood/affect, cooperative - Neurologic Neurologic: CNII-XII intact, moves all extremities Plan Activity: advance as tolerated Diet: low salt, diabetic, other (Cardiac diet) Additional Instructions: Your sugars are not under control, strict monitoring of blood sugars, and in consultation with primary care physician, strict control of blood sugars with the help of oral hypoglycemics and insulin. Exercise as tolerated and weight reduction when medically stable. Advised to see primary care physician in 3 to 5 days. Advised to see private coding team lead in 1 week. If you have worsening symptoms contact MD or go to emergency room as needed Follow up with: CHANTELLE EISENBERG [Other] - 3-5 Days Prescriptions: Spironolactone [Aldactone] 25 mg PO QDAY #30 tablet carvediloL [Coreg] 6.25 mg PO BID #60 tablet Losartan [Cozaar] 100 mg PO QDAY #30 tablet Aspirin EC [Halfprin EC] 81 mg PO QDAY #30 tablet ISOSORBIDE MONOnitrate [Imdur ER] 30 mg PO QDAY #30 tablet Furosemide [Lasix TAB] 20 mg PO QDAY #30 AtorvaSTATin [Lipitor] 40 mg PO QHS #30 tablet Nitroglycerin [Nitrostat] 0.4 mg SL .Q5MIN PRN #20 tablet PRN Reason: Chest Pain Omeprazole 20 mg PO QDAY #30 Clopidogrel [Plavix] 75 mg PO QDAY #30 tablet
[2020-10-15] MEDS ORDERED: CLOPIDOGREL 75 MG TAB PO SCH (15:00)
[2020-10-15] MEDS ORDERED: INSULIN GLARGINE 100 UNITS/ML SUB-Q SCH (22:00)
--- NOTE | 2020-10-18 09:10 | Electrocardiograph Report ---
[facility] Test Date: 2020-10-15 Test Time: 01:00:22 Pat Name: ORA MCINTOSH Department: Room: A457 1 Gender: F Personal Financial Representative: DEMETRIUS : 1955 Requested By: LEON DOWNS Order Number: [id number] Reading MD: Checo Ferris Measurements Intervals [place] Rate: 92 P: 57 [place]: 179 QRS: -16 QRSD: 155 T: 105 QT: 421 QTc: 523 Interpretive Statements Sinus rhythm Left bundle branch block Compared to ECG 10/14/2020 07:22:01 No significant changes Electronically Signed On 10-18-2020 9:09:32 EDT by Checo Ferris
== END 2020-10-15 17:32 | disposition home or self-care (01) | DRG 246 ==
LOC: ED 00:55 → 4A 09:09 → OBSVTOIN 10-13 11:50
PROVIDERS: ADMIT Internal Medicine; ATTEND Internal Medicine
PROC: 027034Z Dilation of Coronary Artery, One Artery with Drug-eluting Intraluminal Device, Percutaneous Approach (ICD-10-PCS; principal; 2020-10-14)
PROC: 4A023N7 Measurement of Cardiac Sampling and Pressure, Left Heart, Percutaneous Approach (ICD-10-PCS; 2020-10-14)
PROC: B2111ZZ Fluoroscopy of Multiple Coronary Arteries using Low Osmolar Contrast (ICD-10-PCS; 2020-10-14)
PROC: B2151ZZ Fluoroscopy of Left Heart using Low Osmolar Contrast (ICD-10-PCS; 2020-10-14)
DX: I25.10 Atherosclerotic heart disease of native coronary artery without angina pectoris (principal); E11.00 Type 2 diabetes mellitus with hyperosmolarity without nonketotic hyperglycemic-hyperosmolar coma (NKHHC); N17.0 Acute kidney failure with tubular necrosis; N28.9 Disorder of kidney and ureter, unspecified; E11.65 Type 2 diabetes mellitus with hyperglycemia; E11.40 Type 2 diabetes mellitus with diabetic neuropathy, unspecified; I50.9 Heart failure, unspecified; I42.9 Cardiomyopathy, unspecified; E87.6 Hypokalemia; E66.9 Obesity, unspecified; E78.5 Hyperlipidemia, unspecified; Z68.32 Body mass index [BMI] 32.0-32.9, adult; Z86.79 Personal history of other diseases of the circulatory system; Z79.899 Other long term (current) drug therapy; Z79.891 Long term (current) use of opiate analgesic; Z94.5 Skin transplant status; Z79.01 Long term (current) use of anticoagulants
CPT/HCPCS: 36415; 71045; 71046; 78580; 80048; 80053; 80061; 82550; 82962; 83036; 83735; 84100; 84484; 85025; 85027; 85379; 85610; 92928; 93005; 93306; 93458; G0378; A9270-GY; A9540; C1725; C1769; C1874; C1887; C1894; C9113; C9600; J1644; J1650; J1815; J1940; J2250; J3010; J7030; J7040; J7120; Q9967